=== PATIENT | male | born 1985 | race Caucasian/White ===

== ENCOUNTER 2021-05-22 15:02 | Emergency (ER) | payer OTHER, SELFPAY ==
[2021-05-22 15:14] VITALS: BP 151/110; PULSE 105; RESP 18; TEMP 36.6; O2SAT 100
--- NOTE | 2021-05-22 15:48 | ED.URI ---
HPI - URI/Sore Throat General Chief Complaint: Upper Respiratory Infection Stated Complaint: Congestion,Cough,Runny Nose Time Seen by Provider: 05/22/21 15:48 Source: patient and RN notes reviewed Mode of arrival: ambulatory Limitations: no limitations History of Present Illness HPI Narrative: 36-year-old male presents with concern for Covid exposure, nasal congestion, headache, rhinorrhea, coughing. Reports symptoms started . Reports a coworker tested positive for Covid. Reports he has been using [id number] medications such as Sudafed with relief of symptoms. He denies shortness of breath, fever, nausea, vomiting, diarrhea. MD elicited complaint: cough Related Data Home Medications Medication Instructions Recorded Confirmed No Home Medications 05/22/21 05/22/21 Allergies Allergy/AdvReac Type Severity Reaction Status Date / Time No Known Allergies Allergy Verified 05/22/21 15:46 Review of Systems Review of Systems: CONSTITUTIONAL: Denies malaise, chills, sweats, or fever. EYES: Denies visual changes, redness, or discharge. ENT: Reports rhinorrhea, congestion. Denies sinus pain, otalgia and sore throat. CARDIOVASCULAR: Denies chest pain, palpitations, or edema. RESPIRATORY: Reports cough. Denies dyspnea. GASTROINTESTINAL: Denies abdominal pain, nausea, vomiting, diarrhea SKIN: Denies rash or itching. MUSCULOSKELETAL: Denies myalgia. NEUROLOGIC: Reports headache. All systems reviewed & are unremarkable except as noted in HPI and below PMFSH Comments At time of signature, agree with nursing past medical, surgical, social and family history. There is no relevant family history pertinent to the presenting complaint Exam Narrative: GENERAL: Well-appearing, well-nourished, and in no acute distress. HEAD: Normocephalic EYES: PERRLA, conjunctivae clear ENT: Nares clear. Mucous membranes moist. TM pearly edwards with dull light reflex bilaterally; no tragal tenderness. Oropharynx not erythematous without lesions. Tonsils not enlarged and without exudate, no drooling, no hoarseness, no trismus, uvula midline. NECK: Supple. No lymphadenopathy CHEST: Clear to auscultation, breath sounds equal. No wheezing, rhonchi, rales, or stridor. No respiratory distress, speaks in full sentences. HEART: Regular rate and rhythm. No murmur heard. SKIN: Warm, dry, no rash. NEURO: Alert and oriented x3. PSYCH: Normal mood and affect Course Course Emergency Course: Patient is aware of diagnosis, understands and agrees to treatment plan. Anticipatory guidance given. Patient agrees to follow-up as directed and is aware of reasons to seek care at the emergency department. Portions of this record may have been created with voice recognition software Vital Signs Vital signs: Vital Signs Temperature 97.8 F 05/22/21 15:14 Pulse Rate 105 H 05/22/21 15:14 Respiratory Rate 18 05/22/21 15:14 Blood Pressure 151/110 H 05/22/21 15:14 Pulse Oximetry 100 05/22/21 15:14 Temperature 97.8 F 05/22/21 15:14 Pulse Rate 105 H 05/22/21 15:14 Respiratory Rate 18 05/22/21 15:14 Blood Pressure 151/110 H 05/22/21 15:14 Pulse Oximetry 100 05/22/21 15:14 Reviewed. Pt has been instructed to follow up with his primary care provider within the next week regarding his elevated blood pressure today. MDM - URI/Sore Throat MDM Narrative Medical decision making narrative: Differential diagnosis considered: Day virus, strep pharyngitis, allergic rhinitis, upper respiratory tract infection, sinusitis, rhinosinusitis, nasopharyngitis. viral pharyngitis, otitis media, otitis externa, pneumonia, bronchitis, viral cough syndrome, viral syndrome, and influenza. Exam findings show no acute concerns or changes; patient is non-toxic appearing and is in no distress. Patient is appropriate for outpatient treatment and follow-up. Lab Data Attestation: I reviewed the patient's lab results. Critical Care Time Critical Care Time Franko
[2021-05-23 21:10] LABS: SARS-CoV-2 RNA PCR Negative
== END 2021-05-22 16:10 | disposition home or self-care (01) ==
PROVIDERS: Emergency Provider Nurse Practitioner
DX: J06.9 Acute upper respiratory infection, unspecified (principal); Z20.822 Contact with and (suspected) exposure to COVID-19
CPT/HCPCS: 87426; 99203; C9803; G0463; U0003; U0005

== ENCOUNTER 2023-01-09 14:20 | Emergency (ER) | payer OTHER, SELFPAY ==
--- NOTE | ~2023-01-09 | XR_ITS ---
EXAM: XR shoulder LT min 2V DATE: 01/09/2023 14:58 HISTORY: diffuse left shoulder pain s/p falling down steps . COMPARISON: None available. FINDINGS: Normal mineralization. No fracture or dislocation. Benign bone island in the left humeral head. No suspicious lytic or blastic lesion. Joint spaces are maintained. No erosion or periosteal ch taisha. Soft tissues within normal limits. IMPRESSION: No acute osseous finding in the left shoulder. Reviewed, dictated and finalized at location [facility].
[2023-01-09 14:23] VITALS: BP 174/102; PULSE 107; RESP 16; TEMP 37.2; O2SAT 99
--- NOTE | 2023-01-09 14:32 | ED.UPPEXIN ---
HPI - Extremity Injury (Upper) General Chief Complaint: Extremity Injury, Upper Stated Complaint: left shoulder pain Time Seen by Provider: 01/09/23 14:30 Source: patient Mode of arrival: ambulatory Limitations: no limitations History of Present Illness HPI narrative: Ray is a 37-year-old male patient presenting to the clinic with complaints of left-sided shoulder pain, clavicle pain, and humerus pain after falling down the stairs this morning. States he stepped on a radha bear and slipped down the stairs-road on his abdomen/left side down approximately 13 steps. He denies hitting his head or any loss of consciousness. He denies any neck pain, back pain, or rib pain. Related Data Home Medications Medication Instructions Recorded Confirmed No Home Medications 05/22/21 01/09/23 Allergies Allergy/AdvReac Type Severity Reaction Status Date / Time Sulfa (Sulfonamide Allergy Rash Verified 01/09/23 14:31 Antibiotics) PMFSH Comments At the time of my signature, I reviewed and agree with the nursing past medical, surgical, social, and family history. There is no relevant family history pertinent to the patient complaint. Course Course Emergency Course: Portions of this record may have been created with voice recognition software. Level of Care: Express Care Visit Vital Signs Vital signs: Vital Signs Temperature 37.2 C 01/09/23 14:23 Pulse Rate 107 H 01/09/23 14:23 Respiratory Rate 16 01/09/23 14:23 Blood Pressure 174/102 H 01/09/23 14:23 Pulse Oximetry 99 01/09/23 14:23 Oxygen Delivery Room Air 01/09/23 14:23 Temperature 37.2 C 01/09/23 14:23 Pulse Rate 107 H 01/09/23 14:23 Respiratory Rate 16 01/09/23 14:23 Blood Pressure 174/102 H 01/09/23 14:23 Pulse Oximetry 99 01/09/23 14:23 Oxygen Delivery Room Air 01/09/23 14:23 Vital signs reviewed MDM - Extremity Injury (Upper) MDM Narrative Medical decision making narrative: At the time of visit patient is resting comfortably on the exam table. X-ray of the left shoulder was completed in the clinic today and was negative for any fracture of the shoulder, humerus, or clavicle. I suspect shoulder strain/muscle strain. Supportive measures were discussed with the patient he voiced understanding of discharge instructions and agrees to treatment plan Differential Diagnosis Differential diagnosis: Likely dislocation of shoulder, fracture of humerus, fracture of clavicle and other (Shoulder sprain, contusion) Imaging Data Radiologist's impression: [address] [id number] [place] [address] XRay Report Signed Patient: Ray Florentino : 1985 MR#: [id number] Age/Sex: 37 / M Acct:[id number] Loc: [facility]? ? ADM Date: 01/09/23Attending Dr: Ordering Physician: Eusebio Jacinto APRN Date of Service: 01/09/23 Procedure(s): XR shoulder LT min 2V Accession Number(s): [id number] cc: Eusebio Jacinto APRN; UNKNOWN,DOCTOR~ EXAM:? XR shoulder LT min 2V DATE: 01/09/2023 14:58 HISTORY: diffuse left shoulder pain s/p falling down steps . COMPARISON:? None available. FINDINGS:? Normal mineralization. No fracture or dislocation. Benign bone island in the left humeral head. No suspicious lytic or blastic lesion. Joint spaces are maintained. No erosion or periosteal change. Soft tissues within normal limits. IMPRESSION: No acute osseous finding in the left shoulder. Reviewed, dictated and finalized at [facility]. Dictated By:? Rigo Rg MD? 01/09/23 1500 Signed By:? ? <Electronically signed by? Rigo gR MD in OV> 01/09/23 1502 Discharge Plan Discharge Clinical Impression: Left shoulder strain, Contusion of left shoulder, Fall (on) (from) other stairs and steps, initial encounter Patient Disposition:
== END 2023-01-09 15:11 | disposition home or self-care (01) ==
PROVIDERS: Emergency Provider Nurse Practitioner Family
DX: S46.912A Strain of unspecified muscle, fascia and tendon at shoulder and upper arm level, left arm, initial encounter (principal); W10.9XXA Fall (on) (from) unspecified stairs and steps, initial encounter; S40.012A Contusion of left shoulder, initial encounter
CPT/HCPCS: 73030; 99213; A4565; G0463

== ENCOUNTER 2023-06-29 14:06 | Emergency (ER) | payer OTHER, SELFPAY ==
--- NOTE | ~2023-06-29 | XR_ITS ---
EXAMINATION: XR chest 2V Exam Date/Time: 06/29/2023 15:08 CDT HISTORY: COUGH, CONGESTION Comparison: None. RESULT: Lines, tubes, and devices: None. Lungs and pleura: Clear. Cardiomediastinal silhouette: Normal. Other: No acute osseous or upper abdominal finding. IMPRESSION: No acute cardiopulmonary process. Reviewed, dictated and finalized at location K.
[2023-06-29 14:19] VITALS: BP 146/97; PULSE 111; RESP 16; TEMP 36.4; O2SAT 97
--- NOTE | 2023-06-29 15:00 | ED.URI ---
HPI - URI/Sore Throat General Chief Complaint: Upper Respiratory Infection Stated Complaint: fluid in ears , congested Time Seen by Provider: 06/29/23 15:00 Source: patient, RN notes reviewed and old records reviewed Mode of arrival: ambulatory Limitations: no limitations History of Present Illness HPI Narrative: 38-year-old male presents to [facility] care with complaints of 2 week duration of cold symptoms which have not resolved despite use of OTC medications. Patient reports other family member had also had cold symptoms and they are all better but he continues with cough, sinus congestion drainage and facial pressure,ears feel like have fluid in them, has taken Zyrtec and also Sudafed for his nasal congestion. Patient reports no recent fevers chills or sweats, states that he has noted some wheezing. MD elicited complaint: cough, rhinorrhea, nasal congestion and sinus pain Onset (ago): week(s) (2) Consistency: constant Pain scale (0-10): 3 Able to tolerate fluids by mouth: Yes Treatments prior to arrival: other (zyrtec,Sudafed) Related Data Home Medications Medication Instructions Recorded Confirmed loratadine 10 mg tablet (Claritin) 10 mg PO DAILY 06/29/23 06/29/23 multivitamin with minerals 1 tablet PO DAILY 06/29/23 06/29/23 Allergies Allergy/AdvReac Type Severity Reaction Status Date / Time Sulfa (Sulfonamide Allergy Rash Verified 06/29/23 14:12 Antibiotics) Review of Systems Review of Systems: CONSTITUTIONAL: Denies malaise, chills, sweats, or fever. EYES: Denies visual changes, redness, or discharge. ENT: Reports rhinorrhea, congestion, sinus pain, otalgia no sore throat. CARDIOVASCULAR: Denies chest pain, palpitations, or edema. RESPIRATORY: Reports cough.? Denies dyspnea.reports has noted some wheezing at times GASTROINTESTINAL: Denies abdominal pain, nausea, vomiting, diarrhea SKIN: Denies rash or itching. MUSCULOSKELETAL: Denies myalgia. NEUROLOGIC: frontal headache. All systems reviewed & are unremarkable except as noted in HPI and below PMFSH Past Medical History Medical History (Updated 06/30/23 @ 08:32 by Laura Farrar NP) Seasonal allergies Surgical History Surgical History (Updated 06/30/23 @ 08:34 by Laura L. Charan, PATENT PROSECUTION ATTORNEY) History of eye surgery right strabismus release History of placement of ear tubes History of tonsillectomy and adenoidectomy Social History Social History (Updated 06/30/23 @ 08:33 by Laura Farrar NP) Smoking status: Current every day smoker Alcohol intake: current Alcohol use details: social Substance use type: does not use Living arrangements: with family Gender identity (if verbalized by the patient): Male Comments At time of signature, agree with nursing past medical, surgical, social and family history. There is no relevant family history pertinent to the presenting complaint Exam Narrative: GENERAL: Well-appearing, well-nourished, and in no acute distress. HEAD: Normocephalic EYES: PERRLA, conjunctivae clear ENT: Nares clear, turbinates edematous and erythematous, clear thick discharge. Mucous membranes moist. TM pearly edwards with dull light reflex bilaterally; no tragal tenderness. Oropharynx erythematous without lesions. Tonsils not enlarged and without exudate, no drooling, no hoarseness, no trismus, uvula midline.post nasal drainage NECK: Supple. No lymphadenopathy CHEST:Occasional scattered wheeze on auscultation, breath sounds equal.Some wheezing,no rhonchi, rales, or stridor. No respiratory distress, speaks in full sentences.cough,SAO2 97% on room air HEART: Regular rate and rhythm. No murmur heard. SKIN: Warm, dry, no rash. NEURO: Alert and oriented x3. PSYCH: Normal mood and affect Course Course Emergency Course: Patient is aware of diagnosis, understands and agrees to treatment plan.? Anticipatory guidance given.? Patient agrees to follow-up as directed and is aware of chepe
== END 2023-06-29 15:31 | disposition home or self-care (01) ==
PROVIDERS: Emergency Provider Registered Nurse
DX: J01.40 Acute pansinusitis, unspecified (principal); R05.1 Acute cough; F17.200 Nicotine dependence, unspecified, uncomplicated
CPT/HCPCS: 71046; 99213; G0463

== ENCOUNTER 2025-05-06 11:38 | Emergency (ER) | payer OTHER, SELFPAY ==
[2025-05-06 11:47] VITALS: BP 150/86; PULSE 101; RESP 16; TEMP 36.8; O2SAT 100
--- NOTE | 2025-05-06 11:54 | ED.URI ---
HPI - URI/Sore Throat General Chief Complaint: Upper Respiratory Infection Stated Complaint: Congestion Time Seen by Provider: 05/06/25 11:55 Source: patient Mode of arrival: ambulatory Limitations: no limitations History of Present Illness HPI Narrative: Ray is a 39 year old male patient presenting to the clinic today with c/o cough, fever, runny nose, and congestion x 2 days. Highest fever was 101.5 ? F. His children were seen at the pediatric office and tested positive for strep and COVID. Has been taking Tylenol for symptoms Related Data Home Medications ?Medication ?Instructions ?Recorded ?Confirmed ?Last Taken ?Type loratadine 10 mg tablet (Claritin) 10 mg PO DAILY 06/29/23 06/29/23 Unknown History multivitamin with minerals 1 tablet PO DAILY 06/29/23 06/29/23 Unknown History Allergies Allergy/AdvReac Type Severity Reaction Status Date / Time Sulfa (Sulfonamide Allergy Rash Verified 05/06/25 11:40 Antibiotics) Review of Systems Review of Systems: Pertinent positives per HPI. Patient denies any rash, headache, visual changes, dizziness, shortness of breath, chest pain, palpitations, nausea, vomiting, diarrhea, constipation, abdominal pain, or any urinary issues. [facility] Past Medical History Medical History Seasonal allergies Surgical History Surgical History History of eye surgery right strabismus release History of tonsillectomy and adenoidectomy History of placement of ear tubes Social History Social History Smoking status: Current every day smoker Alcohol intake: current Alcohol use details: social Substance use type: does not use Living arrangements: with family Gender identity (if verbalized by the patient): Male Comments At the time of my signature, I reviewed and agree with the nursing past medical, surgical, social, and family history. There is no relevant family history pertinent to the patient complaint. Exam Narrative: General: Well-developed, well nourished, in no apparent distress Head: Normocephalic, atraumatic Eyes: Pupils equally round and reactive to light bilaterally, EOM intact, sclera and conjunctive clear, no discharge, lids normal Ears: TMs intact and congested, ear canals clear, no drainage, grossly hearing normal. Nose: Nares patent, clear nasal discharge, moderate inflammation, no sinus tenderness. Mouth: Oral pharynx red without lesions or masses, good dentition, MMM. Tonsils surgically absent Neck: Supple, trachea midline, no enlargement of anterior or posterior cervical nodes, no thyroid masses or goiter palpable. Cardio: Regular rate and rhythm, s1 and s2 normal, no murmur appreciated. Resp: Clear to auscultation bilaterally, no rhonchi, rales, wheezing or rubs Course Course Emergency Course: Portions of this record may have been created with voice recognition software. Level of Care: Express Care Visit Vital Signs Vital signs: Vital Signs Temperature 36.8 C 05/06/25 11:47 Pulse Rate 101 H 05/06/25 11:47 Respiratory Rate 16 05/06/25 11:47 Blood Pressure 150/86 H 05/06/25 11:47 Pulse Oximetry 100 05/06/25 11:47 Oxygen Delivery Room Air 05/06/25 11:47 Temperature 36.8 C 05/06/25 11:47 Pulse Rate 101 H 05/06/25 11:47 Respiratory Rate 16 05/06/25 11:47 Blood Pressure 150/86 H 05/06/25 11:47 Pulse Oximetry 100 05/06/25 11:47 Oxygen Delivery Room Air 05/06/25 11:47 Vital signs reviewed MDM - URI/Sore Throat MDM Narrative Medical decision making narrative: At the time of visit patient is resting comfortably on the exam table. Patient appears to be nontoxic. C/o cough, fever, runny nose, and congestion x 2 days. Highest fever was 101.5 ? F. His children were seen at the pediatric office and tested positive for strep and COVID. Has been taking Tylenol for symptoms. Denies any shortness of breath or chest pain. Lung sounds are clear and there is no sign of bacterial infection in the clinic today. COVID and strep test were ordered. Labs: COVID and strep were negative in the clinic today. We will send strep for culture. Plan: I suspect patient has URI/viral syndrome. Supportive measures were discussed with the patient and they voiced understanding discharge instructions and agrees to treatment plan. Return precautions reviewed Differential Diagnosis Differential diagnosis: Likely upper respiratory infection, otitis media, sinusitis, viral infection, bronchitis, influenza, pharyngitis and other (COVID) Lab Data Labs: Lab Results 05/06/25 Range/Units 12:13 POC SARS CoV-2 Ag Negative (Negative) POC Grp A Strep Screen Negative (Negative) Discharge Plan Discharge Clinical Impression: Viral infection Upper respiratory infection Qualifiers: URI type: unspecified URI Qualified Code(s): J06.9 - Acute upper respiratory infection, unspecified Patient Disposition: Home Condition: Stable Instructions: Antibiotic Form, Viral Syndrome (ED), Cold Symptoms (ED) Additional Instructions: Strep and COVID testing was negative in the clinic today. We will send strep for culture if this comes back positive, we will contact him place you on antibiotics at that time. May take Coricidin HBP for cold/flu symptoms Increase fluids and stay well hydrated Tylenol/motrin per bottle directions for pain/fever Flonase 1 spray in each nare daily and OTC such as Zyrtec or Claritin 10 mg daily as directed Vicks vapor rub to open sinuses Sinus rinses for congestion Cepacol spray, cough drops, throat lozenges, warm tea with honey/lemon, gargle salt water to soothe throat BRAT diet for diarrhea Clear liquids x 24 hours then advance as tolerated for nausea/vomiting Go to the ED if you develop a worsening in your condition- high fever not controlled by Tylenol or Motrin, dehydration, weakness, lethargy, shortness of breath, or chest pain. Follow up with your PCP in 3-5 days if symptoms persist. Patient Language: Faroese Prescriptions: No Action Men's One Daily Tablet 1 tablet PO DAILY loratadine [Claritin] 10 mg Tablet 10 mg PO DAILY Follow-up/Referrals: PHYSICIAN,SENIOR PROJECT COORDINATOR [Primary Care Provider] - Time of Disposition: 12:18 Quality NIHSS Nursing Documentation ED NIHSS nursing documentation: reviewed/agree
[2025-05-06 12:15] LABS: EDCOVIDSCREEN Negative (Negative); EDSTREPNEGPOS1 Negative (Negative)
== END 2025-05-06 12:20 | disposition home or self-care (01) ==
PROVIDERS: Emergency Provider Nurse Practitioner Family
DX: B34.9 Viral infection, unspecified (principal); J06.9 Acute upper respiratory infection, unspecified; Z20.822 Contact with and (suspected) exposure to COVID-19; F17.200 Nicotine dependence, unspecified, uncomplicated
CPT/HCPCS: 87081; 87426; 87880; 99213; G0463